=== PATIENT | male | born 1935 | race Caucasian/White ===

== ENCOUNTER 2019-10-28 16:02 | Emergency (ER) | payer MEDICARE, SELFPAY ==
[2019-10-28 16:08] VITALS: BP 146/58; PULSE 91; RESP 16; TEMP 36.6; O2SAT 99
--- NOTE | 2019-10-28 16:09 | ED.MALEGU ---
HPI - Male Genitourinary General Chief complaint: Urogenital-Male Stated complaint: burning when urinating Time Seen by Provider: 10/28/19 16:09 Source: patient and RN notes reviewed History of Present Illness HPI Narrative: Patient is an 84-year-old male who presents the urgent care with complaints of dysuria. Patient states that started yesterday after his visit with his urologist yesterday, with completion of a prostate exam. Patient states that the dysuria was worse this morning but has improved slightly. Patient does have a history of lung cancer and has recently taken his 3 days worth of chemo. Patient states that he has been told in the past that the chemo could cause odd symptoms but he wanted to make sure this was not a urinary tract infection. Patient denies of any fever, nausea, vomiting, abdominal pain, blood in the urine. No other acute complaints. No acute distress noted. Patient aware of the plan of care. Related Data Home Medications Medication Instructions Recorded Confirmed digoxin 125 mcg PO DAILY 10/28/19 10/28/19 finasteride 5 mg PO DAILY 10/28/19 10/28/19 metoprolol succinate 50 mg PO DAILY 10/28/19 10/28/19 pravastatin 40 mg PO DAILY 10/28/19 10/28/19 tamsulosin 0.4 mg PO DAILY 10/28/19 10/28/19 warfarin 4 mg PO DAILY 10/28/19 10/28/19 Allergies Allergy/AdvReac Type Severity Reaction Status Date / Time fentanyl Allergy Confusion Verified 10/28/19 16:21 Review of Systems Review of Systems: Narrative: CONSTITUTIONAL: Denies fever, chills, or sweats. EYES: Denies visual changes, redness, or discharge. ENT: Denies rhinorrhea, congestion, sore throat, or otalgia. CARDIOVASCULAR: Denies chest pain, palpitations, or edema. RESPIRATORY: Denies cough or dyspnea. GASTROINTESTINAL: Denies abdominal pain, nausea, vomiting, or diarrhea. GENITOURINARY: Reports of dysuria SKIN: Denies rash or itching. MUSCULOSKELETAL: Denies back pain, joint pain, or myalgia. NEUROLOGIC: Denies headache, numbness, or weakness. All other systems reviewed are negative, except as documented in HPI. [facility] Family History Family History (Updated 12/15/13 @ 07:13 by DOCTOR UNKNOWN) Mother Family history of tuberculosis Grandparent Family history of tuberculosis Family history of arthritis Family history of malignant neoplasm Family history of congestive heart failure Father Family history of emphysema Family history of heart disease in male family member before age 55 Social History Social History Smoking status: Current every day smoker Alcohol intake: never Comments At the time of my signature, I reviewed and agree with the nursing past medical, surgical, social, and family history. There is no relevant family history pertinent to the patient complaint. Exam Narrative: Exam Narrative: GENERAL: This is a well-nourished, well-developed patient, in no apparent distress. HEAD: normocephalic, atraumatic. EYES: PERRL. Sclera clear/white. Vision is grossly intact. EARS: External ears normal NOSE: External nose normal with no obvious nasal discharge, nares without redness, no rhinorrhea. THROAT: Mucous membranes moist NECK: Neck supple CARDIOVASCULAR: Regular rate and rhythm GASTROINTESTINAL: Abdomen soft, non-tender, nondistended. SKIN: warm, intact with no suspicious lesions or rash, good texture and turgor. NEURO: awake, alert, and oriented to person, place and time. There were no obvious focal neurologic abnormalities. EXTREMITIES: No clubbing, cyanosis Course Vital Signs Vital signs: Vital Signs Temperature 97.9 F 10/28/19 16:08 Pulse Rate 91 10/28/19 16:08 Respiratory Rate 16 10/28/19 16:08 Blood Pressure 146/58 H 10/28/19 16:08 Pulse Oximetry 99 10/28/19 16:08 Temperature 97.9 F 10/28/19 16:08 Pulse Rate 91 10/28/19 16:08 Respiratory Rate 16 10/28/19 16:08 Blood Pressure 146/58 H 10/28/19 16:08 Pulse Oximetry 99 10/28/19 16:08 Reviewed?patient is inform
== END 2019-10-28 16:42 | disposition home or self-care (01) ==
PROVIDERS: Emergency Provider Nurse Practitioner Family; PCP Internal Medicine
DX: R30.0 Dysuria (principal); C34.92 Malignant neoplasm of unspecified part of left bronchus or lung; I48.91 Unspecified atrial fibrillation; E78.00 Pure hypercholesterolemia, unspecified; I10 Essential (primary) hypertension; Z95.5 Presence of coronary angioplasty implant and graft; Z96.643 Presence of artificial hip joint, bilateral
CPT/HCPCS: 81003; 99212; G0463

== ENCOUNTER 2020-03-26 10:59 | Emergency (ER) | payer MEDICARE, SELFPAY ==
[2020-03-26 11:08] VITALS: BP 117/61; PULSE 67; RESP 20; TEMP 36.7; O2SAT 99
--- NOTE | 2020-03-26 11:42 | ED.GENADULT ---
HPI - General Adult General Chief complaint: Urogenital-Male Stated complaint: poss bladder infection Source: patient Mode of arrival: ambulatory Limitations: no limitations History of Present Illness HPI narrative: Pleasant 84 y/o male. PMH includes: HTN, HLD, A-fib/CAD on active Warfarin Tx, BPH. Presents to the [facility] today with acute complaints of urinary frequency, urgency, as well as dysuria for the past 48 hours. He reports he thinks it is another UTI , and states he gets them often due to his enlarged prostate . Client denies fever, chills. No abdominal pain, flank pain, N/V. No hematuria, testicular swelling. He is without additional acute c/o upon PE. Related Data Home Medications Medication Instructions Recorded Confirmed digoxin 125 mcg PO DAILY 10/28/19 03/26/20 finasteride 5 mg PO DAILY 10/28/19 03/26/20 metoprolol succinate 50 mg PO DAILY 10/28/19 03/26/20 pravastatin 40 mg PO DAILY 10/28/19 03/26/20 tamsulosin 0.4 mg PO DAILY 10/28/19 03/26/20 warfarin 4 mg PO DAILY 10/28/19 03/26/20 Allergies Allergy/AdvReac Type Severity Reaction Status Date / Time fentanyl Allergy Confusion Verified 03/26/20 11:25 Review of Systems Review of Systems: Narrative: CONSTITUTIONAL: Denies fever, chills, sweats. EYES: Denies visual changes, redness, discharge. ENT: Denies rhinorrhea, congestion, sore throat, otalgia. CARDIOVASCULAR: Denies chest pain, palpitations, edema. RESPIRATORY: Denies dyspnea, wheezing, cough GASTROINTESTINAL: Denies abdominal pain, nausea, vomiting, diarrhea. GENITOURINARY: Positive Urinary frequency, urgency, dysuria. No hematuria, abnormal discharge SKIN: Denies rash or itching. MUSCULOSKELETAL: Denies acute back pain, joint pain, or myalgia. NEUROLOGIC: Denies numbness, or focal weakness. PSYCHIATRIC: Denies anxiety or depression. All systems reviewed & are unremarkable except as noted in HPI and below (HPI. ) [facility] Family History Family History Mother Family history of tuberculosis Grandparent Family history of tuberculosis Family history of arthritis Family history of malignant neoplasm Family history of congestive heart failure Father Family history of emphysema Family history of heart disease in male family member before age 55 Social History Social History Smoking status: Current every day smoker Alcohol intake: never Comments At the time of my signature I agree with nursing past medical history, surgical, social, and family history. There is no relevant family history pertinent to the presenting complaint. Exam Narrative: Exam Narrative: GENERAL: This is a well-nourished, well-developed patient, in no apparent distress. HEAD: normocephalic, atraumatic. EYES: PERRL. Sclera clear/white. Vision is grossly intact. EARS: External ears normal, auditory canals clear and without drainage, TMs normal without perforation. Hearing grossly intact. NOSE: External nose normal with no obvious nasal discharge, nares without redness, no rhinorrhea. THROAT: Mucous membranes moist, posterior pharynx clear. NECK: Neck supple, non-tender without lymphadenopathy, masses or thyromegaly. CARDIOVASCULAR: Regular rate and rhythm without murmurs, gallops, or rubs. RESPIRATORY: Clear to auscultation. Breath sounds equal bilaterally. No wheezes, rales, or rhonchi. GASTROINTESTINAL: Abdomen soft, non-tender, nondistended. Bowel sounds are active. No hepato-splenomegaly, or palpable masses. No guarding. SKIN: warm, intact with no suspicious lesions or rash, good texture and turgor. NEURO: awake, alert, and oriented to person, place and time. There were no obvious focal neurologic abnormalities. Steady gait EXTREMITIES: Normal range of motion. No edema. No calf tenderness. Negative Homans sign bilaterally. BACK: Nontender without deformity or crepitance. No flank tenderness.
== END 2020-03-26 11:45 | disposition home or self-care (01) ==
PROVIDERS: Emergency Provider Nurse Practitioner Adult Health; PCP Family Medicine
DX: N39.0 Urinary tract infection, site not specified (principal); I10 Essential (primary) hypertension; E78.5 Hyperlipidemia, unspecified; I48.91 Unspecified atrial fibrillation; I25.10 Atherosclerotic heart disease of native coronary artery without angina pectoris; N40.0 Benign prostatic hyperplasia without lower urinary tract symptoms; Z79.01 Long term (current) use of anticoagulants; F17.200 Nicotine dependence, unspecified, uncomplicated
CPT/HCPCS: 81003; 87077; 87086; 87088; 87186; 99213; G0463

== ENCOUNTER 2020-05-15 14:48 | Emergency (ER) | payer MEDICARE, SELFPAY ==
[2020-05-15 15:18] VITALS: BP 139/63; PULSE 79; RESP 18; TEMP 36.5; O2SAT 100
--- NOTE | 2020-05-15 16:21 | ED.MALEGU ---
HPI - Male Genitourinary General Chief complaint: Urogenital-Male Stated complaint: Possible UTI Time Seen by Provider: 05/15/20 15:45 Source: patient and RN notes reviewed Mode of arrival: ambulatory Limitations: no limitations History of Present Illness HPI Narrative: Patient presents today with a 4-day history of dysuria, frequency, voiding small amounts. Denies fever, abdominal pain, back pain, hematuria. History of BPH. Currently undergoing chemotherapy for lung cancer. No [id number] treatment prior to arrival. MD Complaint: dysuria Related Data Home Medications Medication Instructions Recorded Confirmed digoxin 125 mcg PO DAILY 10/28/19 05/15/20 finasteride 5 mg PO DAILY 10/28/19 05/15/20 metoprolol succinate 50 mg PO DAILY 10/28/19 05/15/20 pravastatin 40 mg PO DAILY 10/28/19 05/15/20 tamsulosin 0.4 mg PO DAILY 10/28/19 05/15/20 warfarin 4 mg PO DAILY 10/28/19 05/15/20 dexamethasone 4 mg PO DAILY 05/15/20 05/15/20 Allergies Allergy/AdvReac Type Severity Reaction Status Date / Time fentanyl Allergy Confusion Verified 05/15/20 15:21 Review of Systems Review of Systems: Narrative: CONSTITUTIONAL: Denies body aches, fever, chills, or sweats. EYES: Denies visual changes, redness, or discharge. ENT: Denies rhinorrhea, congestion, sore throat, or otalgia. CARDIOVASCULAR: Denies chest pain, palpitations, or edema. RESPIRATORY: Denies cough or dyspnea. GASTROINTESTINAL: Denies abdominal pain, nausea, vomiting, or diarrhea. GENITOURINARY: Denies hematuria. + Dysuria, frequency, voiding small amounts SKIN: Denies rash, itching, or wounds. MUSCULOSKELETAL: Denies back pain, joint pain, or myalgia. NEUROLOGIC: Denies headache, numbness, tingling, or weakness. PSYCH: Denies depression or anxiety. [facility] Past Medical History Medical History (Updated 05/15/20 @ 19:36 by Rosa Fonseca, [employer], ) A-fib BPH (benign prostatic hyperplasia) Hypercholesterolemia Hypertension Lung cancer Family History Family History Mother Family history of tuberculosis Grandparent Family history of tuberculosis Family history of arthritis Family history of malignant neoplasm Family history of congestive heart failure Father Family history of emphysema Family history of heart disease in male family member before age 55 Social History Social History Smoking status: Current every day smoker Alcohol intake: never Comments At time of signature, I have reviewed and agree with nursing past medical, surgical, social and family history unless otherwise noted. Please see nursing chart for further information. There is no relevant family history pertinent to the presenting complaint Exam Narrative: Exam Narrative: GENERAL: Well-appearing, well-nourished, and in no acute distress. HEAD: Normocephalic, atraumatic. EYES: EOMI. No redness or drainage. Conjunctivae normal. ENT: Mucous membranes pink and moist. NECK: Normal AROM. CHEST: No respiratory distress. Clear to auscultation. HEART: Regular rate and rhythm. No murmur appreciated. Normal peripheral pulses. ABDOMEN: Soft, nontender, nondistended, normal active bowel sounds. -CVAT MUSCULOSKELETAL: No bony tenderness. EXTREMITIES: Normal range of motion. No edema. SKIN: Warm, dry, no rash. Capillary refill normal. Normal skin turgor. NEURO: No focal deficits. Alert and oriented x3. Gait steady. PSYCH: Normal affect. No signs of depression or anxiety. Course Vital Signs Vital signs: Vital Signs Temperature 97.7 F 05/15/20 15:18 Pulse Rate 79 05/15/20 15:18 Respiratory Rate 18 05/15/20 15:18 Blood Pressure 139/63 05/15/20 15:18 Pulse Oximetry 100 05/15/20 15:18 Temperature 97.7 F 05/15/20 15:18 Pulse Rate 79 05/15/20 15:18 Respiratory Rate 18 05/15/20 15:18 Blood Pressure 139/63 05/15/20 15:18 Pulse Oximetry
== END 2020-05-15 16:33 | disposition home or self-care (01) ==
PROVIDERS: Emergency Provider Nurse Practitioner
DX: N30.01 Acute cystitis with hematuria (principal); F17.200 Nicotine dependence, unspecified, uncomplicated; I48.91 Unspecified atrial fibrillation; N40.0 Benign prostatic hyperplasia without lower urinary tract symptoms; E78.00 Pure hypercholesterolemia, unspecified; I10 Essential (primary) hypertension; Z85.118 Personal history of other malignant neoplasm of bronchus and lung; Z79.01 Long term (current) use of anticoagulants
CPT/HCPCS: 81003; 87077; 87086; 87088; 87186; 99213; G0463